=== PATIENT | female | born 1980 | race Two or more races ===

== ENCOUNTER 2019-10-31 05:20 | Day surgery (SDC) | payer OTHER ==
[2019-10-31] MEDS ORDERED: PERCOCET 5-3251 EACH PO (10:14)
[2019-10-31] MEDS ORDERED: ZOFRAN8 MG PO (10:15)
[2019-10-31] MEDS ORDERED: NEXIUM 24HR20 M1 PO (10:15)
== END 2019-10-31 14:55 | disposition home or self-care (01) ==
LOC: CIR.AMB 05:20
PROVIDERS: ATTEND Surgery
DX: K80.10 Calculus of gallbladder with chronic cholecystitis without obstruction (principal); Z20.828 Contact with and (suspected) exposure to other viral communicable diseases